=== PATIENT | male | born 1995 | race Hispanic/Latino ===

== ENCOUNTER 2024-07-10 14:22 | Emergency (ER) | payer SELFPAY ==
[~2024-07-10] VITALS: Ht 165.1 cm; Wt 65.8 kg
[2024-07-10 15:23] VITALS: PULSE 101; RESP 18; TEMP 99; O2SAT 98
[2024-07-10 15:58] LABS: CORONAVIRUS COVID-19 AG NEGATIVE (NEGATIVE); INFLUENZA A AG NEGATIVE (NEGATIVE); INFLUENZA B AG NEGATIVE (NEGATIVE)
== END 2024-07-10 16:20 | disposition home or self-care (01) ==
LOC: ER 16:16
DX: R50.9 Fever, unspecified (principal); B34.9 Viral infection, unspecified; R05.9 Cough, unspecified; R51.9 Headache, unspecified; B20 Human immunodeficiency virus [HIV] disease; R53.81 Other malaise; F17.210 Nicotine dependence, cigarettes, uncomplicated
CPT/HCPCS: 99282